=== PATIENT | female | born 1955 | race Caucasian/White ===

== ENCOUNTER 2023-09-12 23:01 | Emergency (ER) | payer BC ==
[~2023-09-12] VITALS: Ht 154.9 cm; Wt 55.0 kg
[2023-09-12 23:20] VITALS: BP 121/79; PULSE 77; RESP 20; TEMP 97.5; O2SAT 98
[2023-09-13] MEDS ORDERED: TETANUS, DIPHTHERIA, PERTUSSIS VAC/PF 0.5ML (>10YR OLD) IM ONE
== END 2023-09-13 00:30 | disposition home or self-care (01) ==
LOC: ER 23:23
DX: S01.111A Laceration without foreign body of right eyelid and periocular area, initial encounter (principal); X58.XXXA Exposure to other specified factors, initial encounter; Y93.89 Activity, other specified; Y92.89 Other specified places as the place of occurrence of the external cause; Y99.8 Other external cause status
CPT/HCPCS: 99281